=== PATIENT | male | born 1965 | race Caucasian/White ===

== ENCOUNTER 2020-07-06 00:13 | Emergency (ER) | payer OTHER, SELFPAY ==
--- NOTE | ~2020-07-06 | XR_ITS ---
EXAMINATION: XR shoulder RT min 2V DATE: 07/06/2020 00:36 INDICATION: Superior right shoulder pain radiating down the arm. TECHNIQUE: AP internally and externally rotated, AP oblique externally rotated and transscapular Y vi ews of the right shoulder were obtained. COMPARISON: None FINDINGS: Normal alignment. No fracture.Mild chondrocalcinosis at the inferior glenoid labrum. Minimal nonunif orm joint space narrowing at the right glenohumeral joint consistent with very mild osteoarthritis. A cromioclavicular joint space is normal. Tiny calcified nodule at the right lower lung zone consistent with old granulomatous disease. IMPRESSION: Very mild right glenohumeral osteoarthritis. No acute osseous abnormality. Reviewed, dictated and finalized at location A.
[2020-07-06 00:15] VITALS: BP 165/80; PULSE 77; RESP 16; TEMP 36.3; O2SAT 98
--- NOTE | 2020-07-06 00:52 | ED.UPPEXIN ---
HPI - Extremity Injury (Upper) General Chief Complaint: Extremity Injury, Upper Stated Complaint: right shoulder pain Time Seen by Provider: 07/06/20 00:40 Source: patient Mode of arrival: ambulatory Limitations: no limitations History of Present Illness HPI narrative: This is a 55-year-old male that presents the emergency department for right shoulder pain today. Reports he was lifting a squeegee overhead and felt a sharp pain in the right shoulder. Reports since he has had pain over the lateral shoulder that radiates into arm. Worse with movement and relieved with rest. Reports decreased active range of motion due to pain. Denies numbness. Review of Systems Review of Systems: Narrative: CONSTITUTIONAL: Denies fever MUSCULOSKELETAL: Reports joint pain, and myalgia. NEUROLOGIC: Denies numbness All systems reviewed & are unremarkable except as noted in HPI and below PMFSH Social History Social History Smoking status: Never smoker Alcohol intake: current Exam Narrative: Exam Narrative: GENERAL: Well-appearing, well-nourished, and in no acute distress. HEAD: Normocephalic, atraumatic. EYES: PERRLA and EOMI. ENT: Nares clear, no rhinorrhea or epistaxis. Mucous membranes moist. Oropharynx without tonsillar hypertrophy exudate or other lesions. Bilateral TMs pearly jack non-bulging NECK: Supple. No adenopathy or masses. No carotid bruits or JVD CHEST: Clear to auscultation. No respiratory distress. No wheezes rales or rhonchi HEART: Regular rate and rhythm. No murmur heard. Normal peripheral pulses. ABDOMEN: Soft, nontender, nondistended, normal active bowel sounds. EXTREMITIES: Decreased active range of motion in the right shoulder due to pain. Pain with range of motion above 90 degrees. No edema, erythema or obvious deformity. Normal sensation. Normal radial pulses. Strength equal in bilateral upper extremities (5/5) SKIN: Warm, dry, no rash. NEURO: No focal deficits. Alert and oriented x3. PSYCH: Normal mood and affect Course Vital Signs Vital signs: Vital Signs Temperature 97.4 F L 07/06/20 00:15 Pulse Rate 77 07/06/20 00:15 Respiratory Rate 16 07/06/20 00:15 Blood Pressure 165/80 H 07/06/20 00:15 Pulse Oximetry 98 07/06/20 00:15 Temperature 97.4 F L 07/06/20 00:15 Pulse Rate 77 07/06/20 00:15 Respiratory Rate 16 07/06/20 00:15 Blood Pressure 165/80 H 07/06/20 00:15 Pulse Oximetry 98 07/06/20 00:15 MDM - Extremity Injury (Upper) MDM Narrative Medical decision making narrative: Patient presents the emergency department for right shoulder pain. No certain trauma. Reports he was lifting his arm up over his head when he felt a sharp pain in the shoulder. Pain is over the deltoid and radiates into the arm. Pain is worse with range of motion above 90 degrees. Right shoulder x-rays without acute osseous abnormalities. Patient instructed on care of possible rotator cuff injury. He was given a sling for comfort. He was instructed to come out of the sling often and do range of motion exercises. Instructed to take [id number] pain medications as needed. He will be given orthopedics for follow-up. He was given warnings to return to the ER Imaging Data My impression: Right shoulder x-ray: Negative for acute bone or joint abnormality Critical Care Time Critical Care Time Critical Care Time: No Discharge Plan Discharge Clinical Impression: Acute pain of right shoulder Patient Disposition: Home, Self-Care Condition: Stable Instructions: Shoulder Pain (ED) Additional Instructions: Return to the emergency department if you experience fever, redness and swelling of your arm, numbness, or any other symptoms that are concerning to you You may wear sling for comfort. Do make sure to come out of the sling and do range of motion exercises. [id number] pain medication as needed. Ice to the area Follow-up with orthopedics. Call to make an appointment Follow-up/Ref
[2020-07-06 01:02] VITALS: BP 158/74; PULSE 72; RESP 18
== END 2020-07-06 01:02 | disposition home or self-care (01) ==
LOC: ANHED 01:06
PROVIDERS: Emergency Provider Emergency Medicine
DX: M25.511 Pain in right shoulder (principal); M19.011 Primary osteoarthritis, right shoulder
CPT/HCPCS: 73030; 99283; A4565

== ENCOUNTER → 2020-08-09 10:21 | Outpatient (CLI) | payer OTHER, SELFPAY ==
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
--- NOTE | ~2020-08-09 | CT_ITS ---
EXAMINATION: CT shoulder RT w con DATE: 08/09/2020 11:39 INDICATION: Posttraumatic right shoulder weakness and pain TECHNIQUE: High resolution computed tomography (CT) arthrogram of the right shoulder was performed fo llowing intra-articular administration of a 1:3 mixture of Omnipaque 240 but without intravenous cont rast. Details of the joint injection have been dictated separately. Additional sagittal and coronal r econstructions were performed. Automated exposure control and iterative reconstruction technique were employed. The dose-length product was 479.46 mGy-cm. COMPARISON: 07/09/2020 FINDINGS: Bone alignment is normal. No fracture. Mild acromioclavicular osteoarthritis. Mild right glenohumeral osteoarthritis with partial thickness cartilage loss with smooth chondral surface along the cephalad third of the glenoid. There is a partial-thickness tear at the base of the posterior superior labrum extending from the 10:00-12:00 position. There is an additional contrast filled tear at the 6:00-7:0 0 position of the inferior glenoid. There is a large tear involving the majority of the lesser tubero sity footplate of the subscapularis tendon. The majority the bursal side of the tendon remains intact and contiguous with the transverse humeral ligament. There is however a small full-thickness perfora tion at the cephalad aspect of the tendon resulting in extension of injected contrast into the subacr omial/subdeltoid bursa. No articular sided tear of the supraspinatus, infraspinatus or teres minor te ndons or bursal sided tear of the supraspinatus tendon which is delineated by the contrast in the sub deltoid portion of the bursa. No asymmetric muscular atrophy of the rotator cuff 1 remainder of the s houlder girdle. No pathologically enlarged lymphadenopathy at the right axilla or in the visualized r ight hilum and superior right mediastinum. Visualized portion of the right lung are clear. IMPRESSION: 1. Mild glenohumeral osteoarthritis with tears at the superior to posterior superior labrum and at th e inferior glenoid labrum. 2. Partial tear of the distal subscapularis tendon involving the majority of the lesser tuberosity fo otplate and with small full-thickness perforation at the cephalad aspect of bursal side of the tendon which remains otherwise intact and contiguous with the transverse humeral ligament. 3. Mild acromioclavicular osteoarthritis. Reviewed, dictated and finalized at location A. IMPRESSION: 1. Mild glenohumeral osteoarthritis with tears at the superior to posterior sup erior labrum and at the inferior glenoid labrum. 2. Partial tear of the distal subscapularis tendon involving the majority of th e lesser tuberosity footplate and with small full-thickness perforation at the cephalad aspect of bursal side of the tendon which remains otherwise intact and contiguous with the transverse humeral ligament. 3. Mild acromioclavicular osteoarthritis.
== END ==
PROVIDERS: Visit Provider Orthopaedic Surgery
DX: S46.811A Strain of other muscles, fascia and tendons at shoulder and upper arm level, right arm, initial encounter (principal); M19.011 Primary osteoarthritis, right shoulder
CPT/HCPCS: 23350; 73201; 77002; Q9966

== ENCOUNTER 2021-11-20 15:05 | Emergency (ER) | payer OTHER, SELFPAY ==
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
[2021-11-20 15:15] VITALS: BP 154/88; PULSE 79; RESP 18; TEMP 36.3; O2SAT 100
== END 2021-11-20 15:52 | disposition home or self-care (01) ==
PROVIDERS: Emergency Provider Nurse Practitioner Family
DX: S81.811D Laceration without foreign body, right lower leg, subsequent encounter (principal); V29.9XXD Motorcycle rider (driver) (passenger) injured in unspecified traffic accident, subsequent encounter; I10 Essential (primary) hypertension; M19.90 Unspecified osteoarthritis, unspecified site
CPT/HCPCS: 99211; G0463

== ENCOUNTER 2023-10-01 08:28 | Outpatient (CLI) | payer OTHER, SELFPAY ==
--- NOTE | ~2023-10-01 | CT_ITS ---
EXAMINATION: CT sinus wo con DATE: 10/01/2023 09:00 INDICATION: Chronic sinusitis. TECHNIQUE: Computed tomography (CT) of the paranasal sinuses was performed without intravenous contra st. Iterative reconstruction technique was employed. The dose-length product was 283.55 mGy-cm. COMPARISON: CT sinuses 04/25/2006 FINDINGS: There is extensive mucosal thickening in the frontal and bilateral ethmoid sinuses. There i s moderate mucosal thickening in the sphenoid sinus and mild mucosal thickening in the maxillary sinu ses. There is nodular mucosal thickening in the nasal cavity. There are changes of uncinectomies and ethmoidectomies. There is rightward deviation of the inferior nasal septum and leftward deviation of superior nasal septum. The ostiomeatal units are patent. There is gas in right ocular globe. IMPRESSION: 1. 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 2. Rightward deviation of inferior nasal septum and leftward deviation of superior nasal septum. 3. Gas in right ocular globe. Reviewed, dictated and finalized at location A. IMPRESSION: 1. 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 2. Rightward deviation of inferior nasal septum and leftward deviation of super ior nasal septum. 3. Gas in right ocular globe.
== END 2023-10-01 08:29 ==
LOC: MICIMG 08:28
PROVIDERS: PCP Otolaryngology; Visit Provider Otolaryngology
DX: J32.9 Chronic sinusitis, unspecified (principal); J34.2 Deviated nasal septum
CPT/HCPCS: 70486

== ENCOUNTER 2025-02-20 21:00 | Observation (INO) | payer OTHER, SELFPAY ==
[2025-02-20] VITALS (7 sets, daily range): BP systolic 144–162; BP diastolic 65–81; PULSE 65–74; RESP 14–22; TEMP 36.3–36.9; O2SAT 95–99; BMI 36.3
--- NOTE | ~2025-02-20 | XR_ITS ---
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 Lungs clear. No acute bony abnormality. Small hiatal hernia. IMPRESSION: 1. No acute cardiopulmonary findings given portable technique. Reviewed, dictated and finalized at location R. ESTATE PROFESSOR
--- NOTE | ~2025-02-20 | CT_ITS ---
CT HEAD NON-CONTRAST Clinical History: left sided defecit Comparison: None Technique: Unenhanced axial images skull base to vertex Coronal, sagittal reformats CT images acquired with automatic exposure control for dose reduction DLP: 605 mGy-cm Findings: Sulci, ventricles: Unremarkable. No intracerebral hemorrhage. No evidence acute territorial infarct. No mass effect, midline shift. Bony calvarium intact. Visualized paranasal sinuses: Maxillary antrectomies. A few scattered retention cysts. Mastoid air cells: Clear. IMPRESSION: 1. No acute intracranial findings. Reviewed, dictated and finalized at location R. [place] INTERIOR DESIGNER
--- NOTE | ~2025-02-20 | CT_ITS ---
EXAMINATION: CTA BRAIN/CAROTID DATE: 02/20/2025 21:41 INDICATION: Suspected stroke with left-sided neurologic deficits TECHNIQUE: Computed tomographic angiography (CTA) of the head and neck was performed with 100 mL Omnipaque-350 intravenous contrast. Multiplanar reconstructions and maximum intensity projection 3D-reconstructions of the carotid arteries and of the intracranial arteries were created by the technologist on a separate workstation. Automated exposure control and iterative reconstruction technique were employed.The dose-length product was 1157.13 mGy-cm. COMPARISON: Head CT dated 02/20/2025 FINDINGS: Intracranial arteries Vertebral arteries are codominant. There is a linear filling defect extending across the caudal-most basilar artery which could represent a small dissection flap or small amount of nonocclusive thrombus. There is a minimal amount of nonhemodynamically significant atherosclerotic plaque at the bilateral carotid siphons. There is no hemodynamically significant stenosis in the vertebral, basilar and internal carotid arteries. The right P1 and bilateral A1 segments are patent. The left posterior cerebral artery supplied via a left internal carotid artery and a patent left posterior commuting artery. There is also a patent smaller caliber right posterior communicating artery providing collateral flow to the right posterior cerebral artery. There is a patent anterior communicating artery. There are no aneurysms identified. Cerebral arterial arborization appears symmetric. No abnormally enhancing brain lesions. Carotid arteries: The aortic arch and the great vessels arising from the arch are normal in caliber with no dissection or hemodynamically significant stenosis. There is 25% stenosis of the right carotid bulb relative to normal distal artery lumen diameter (NASCET criteria). There is no evident atherosclerotic plaque with 0% stenosis of the left carotid bulb relative to normal distal artery lumen diameter. Mild atelectasis in the visualized upper lungs likely related to expiratory phase of imaging with concave contour of the posterior wall of the trachea. The bones as well as the cervical soft tissues are unremarkable. IMPRESSION: 1. 25% stenosis of the right carotid bulb relative to normal distal artery lumen diameter (NASCET criteria). 2. 0% stenosis of the left carotid bulb relative to normal distal artery lumen diameter. 3. Small linear filling defect at the proximal basilar artery which could represent a short dissection flap or small amount of nonocclusive thrombus. Otherwise unremarkable cerebral CT angiogram. Reviewed, dictated and finalized at location A. T PLANNER IMPRESSION: 1. 25% stenosis of the right carotid bulb relative to normal distal artery lume n diameter (NASCET criteria). 2. 0% stenosis of the left carotid bulb relative to normal distal artery lumen diameter. 3. Small linear filling defect at the proximal basilar artery which could repre sent a short dissection flap or small amount of nonocclusive thrombus. Otherwis e unremarkable cerebral CT angiogram.
--- NOTE | ~2025-02-20 | CT_ITS ---
EXAMINATION: CTA chest abdomen pelvis DATE: 02/21/2025 9:59 SHIFT MGR INDICATION: Left-sided pain. Neurologic deficit. TECHNIQUE: Computed tomographic angiography (CTA) of the chest, abdomen, and pelvis was performed without and with 100 mL Omnipaque-350 intravenous contrast. The dose-length product was 1721.20 mGy-cm. Maximum intensity projection 3D- reconstructions of the aorta and other arteries were constructed by the technologist on a separate workstation. Automated exposure control and iterative reconstruction technique were employed. COMPARISON: None. FINDINGS: CHEST CTA: There is a Bochdalek hernia containing small hiatal hernia. No significant pleural or pericardial effusion. No central pulmonary embolism. No evidence for aortic aneurysm or dissection. Shallow inspiration with crowding of the pulmonary vessels. Dependent atelectasis. No significant pleural or pericardial effusion. No thoracic lymphadenopathy. ABDOMEN AND PELVIS CTA: No evidence for aortic aneurysm or dissection. No lymphadenopathy. Fatty infiltration of the liver. Gallbladder is present. The spleen, pancreas, adrenal glands and kidneys are unremarkable. Normal appendix. No free air or free fluid. The celiac axis, SMA, renal arteries and [place] are patent. Colonic diverticulosis without evidence for diverticulitis. Nonobstructive bowel pattern. Mild lower thoracic and lumbar spondylosis. IMPRESSION: 1. No acute abnormality of the chest, abdomen or pelvis. No significant vascular abnormality. 2: Fat-containing Bochdalek hernia. 3: Fatty infiltration of the liver. Reviewed, dictated and finalized at location O. T MGR IMPRESSION: 1. No acute abnormality of the chest, abdomen or pelvis. No significant vascula r abnormality. 2: Fat-containing Bochdalek hernia. 3: Fatty infiltration of the liver.
--- OUTSIDE RECORDS SUMMARY | 2025-02-20 21:02 | XMS_ITS | Clinical Summary ---
Author Organization [facility] Address [address] [place] [address] Care Team Providers Care Mortician Investigator Name Role Phone No, Physician Primary Care Provider [phone] Allergies No known active allergies Medications No known medications Active Problems Problem Noted Date Diagnosed Date Right retinal detachment 09/13/2023 Assessment & Plan (12/24/2023 12:39 PM CDT): POM3 status post PPV/EL/AFx/SF6 to the right eye for mac-off RRD (09/16/23) Retina attached on exam. No ME on OCT. 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 Vision improves with pinhole. We discussed that cataract surgery may help his VA but vision will not return to what it was prior to the retinal detachment. Patient would like to be seen in pre-op clinic to discuss options. Of note, patient had a small lens coloboma noted during surgery - this is likely accompanied by absence of zonular support in that area, will likely be a complex cataract. Can return to retina prn. Assessment & Plan (10/24/2023 8:31 AM CDT): Five weeks status post PPV/EL/AFx/SF6 to the right eye for mac-off RRD. Retina attached on exam. No ME on OCT. We discussed that decreased vision may be due to damage to the retina from the detachment; cataract surgery may help but may not return vision to normal. Return to clinic in 2 months Signs and symptoms of retinal detachment, tears and endophthalmitis, elevated pressure reviewed with patient. If exam stable, refer to pre-op. Patient's cataract surgery may be complex due to small lens coloboma (visible during surgery). Post Op Position: none Restrictions lifted, no altitude precautions Assessment & Plan (10/08/2023 3:15 PM CDT): Three weeks status post PPV/EL/AFx/SF6 to the right eye. Bubble has resolved. Addon today for decreased vision after basketball to head. Retina attached on exam. No ME on OCT. Subjective decreased VA compared to OS may be due to cataract. Continue Tobramycin 2x/day, and Predforte 2x/day until bottles run out Return to clinic in October as scheduled. Signs and symptoms of retinal detachment, tears and endophthalmitis, elevated pressure reviewed with patient. Post Op Position: none Restrictions lifted, no altitude precautions Assessment & Plan (09/24/2023 5:29 PM CDT): One week status post PPV/EL/AFx/SF6 to the right eye. Exam w/ bubble in AC, deep chamber. Can stop shield, Tobramycin 2x/day, and Predforte 2x/day until bottles run out Return to clinic in one month. Signs and symptoms of retinal detachment, tears and endophthalmitis, elevated pressure reviewed with patient. Post Op Position: none Altitude precautions were reviewed with patient. Restrictions lifted Assessment & Plan (09/17/2023 7:02 PM CDT): One day status post PPV/EL/AFx/SF6 to the right eye. Exam with bubble between phakic lens and iris superiorly - possible due to lens coloboma noted during surgery (likely missing zonules). AC deep inferiorly. Shield operated eye, Tobramycin 4x/day, and Predforte 4x/day Return to clinic in one week. Signs and symptoms of retinal detachment, tears and endophthalmitis, elevated pressure reviewed with patient. Post Op Position:Avoid flat on back position. Altitude precautions were reviewed with patient. No strenuous activity. 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 Symptoms for several weeks with worsening of vision on 09/11. Risks, benefits and alternatives for surgery include by not limited to infection, bleeding, damage to the eye, loss of vision, loss of the eye,deformity, diplopia, increased IOP, cataract, need for new refraction, RD, RT, gas injection, post op positioning, altitude precautions, silicone oil placement, need for additional surgery, inflammation to one or both eyes, no guarantees were made, and the guarded prognosis was discussed with the patient. 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 They understand and wish to proceed. Plan: PPV/EL/AFx/[id number] OD [place]/Eufemia 90 minutes MAC Social History Tobacco Use Types Packs/Day Years Used Date Smoking Tobacco: Never Tobacco Cessation:Counseling Given: Not Answered AUDIT-C Answer Date Recorded Q1: How often do you have a drink containing alc ohol? Monthly or less 09/16/2023 Q2: How many drinks containi ng alcohol do you have on a typical day when you are drinking? 1 or 2 09/16/2023 Q3: How often do you have si x or more drinks on one occasion? Never 09/16/2023 Personal Safety Answer Date Recorded Have you ever been in or are you currently in a harmful physical or emotional relationship or is someone making you feel afraid or unsafe? 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 Gender Identity Not on file Sexual Orientation Not on file Last Filed Vital Signs Vital Sign Reading Time Taken Comments Blood Pressure 123/77 09/16/2023 3:10 PM CDT Pulse 62 09/16/2023 3:10 PM CDT Temperature 36 C (96.8 F) 09/16/2023 3:04 PM CDT Respiratory Rate 16 09/16/2023 3:10 PM CDT Oxygen Saturation 94% 09/16/2023 3:10 PM CDT Inhaled Oxygen Concentration - - Weight 124.7 kg (275 lb) 09/16/2023 12:41 PM CDT Height 188 cm (6' 2) 09/16/2023 12:41 PM CDT Body Mass Index 35.31 09/16/2023 12:41 PM CDT Plan of Treatment Health Maintenance Due Date Last Done Comments Colon Cancer Screening-Colonoscopy 1964 Depression Screening 1964 Hepatitis C Screening 1964 Prostate Cancer Screening-PSA 1964 Hepatitis B Screening 1982 Regular Well Visit/Exam 18-64 1982 Zoster Vaccine (1 of 2) 2014 DTaP/Tdap/Td Vaccine (2 - Td or Tdap) 01/07/2024 01/06/2014 Influenza Vaccine (#1) 2024 4, 01/27/2013 Pneumococcal vaccine <65 Aged Out No longer eligible based on patient's age to complete this topic Insurance [facility] Care Teams Mortician Investigator Relationship Specialty Start Date End Date No, Physician PCP - General 09/13/23
--- OUTSIDE RECORDS SUMMARY | 2025-02-20 21:02 | XMS_ITS | Data Portability ---
Author Organization [facility], Main Office Address [address] [place] [address] Assessment No assessment recorded. Plan of Treatment Reminders Order Date Submit Date Provider Last Modified By Organization Details Last Modified Time Details Appointments None recorded. Lab None recorded. Referral None recorded. Procedures None recorded. Surgeries endoscopy, nasal/sinus , w/ maxillary antrostomy & tissue removal (SURG) 2023 024 [email or web address] Not available 5 12:33:11 endoscopy, nasal/sinus , with frontal sinus exploration (SURG) 2023 024 [email or web address] Not available 5 12:33:11 endoscopy, nasal/sinus , w/ total ethmoidecto my (SURG) 2023 024 [email or web address] Not available 5 12:33:11 endoscopy with removal of sphenoid sinus tissue (SURG) 2023 024 [email or web address] Not available 5 12:33:11 Imaging None recorded. Medication Orders cefdinir 300 mg capsule 2023 024 [id number], [address], [id number], 4 13:57:07 Medrol (Cipriano) 4 mg tablets in a dose pack 2023 [facility] #[id number], [address], [id number], 4 13:57:10 Patient TargetsNo targets recorded. Patient InstructionsNo instructions recorded. Reason for Referral None Reported. Results Created Date Observation Date Name Description Value Unit Range Abnormal Flag Note LastModifiedBy Organization Detail LastModifiedTime 10/02/19 24 10/01/2023 CT, sinus es, w/o contr ast No observ ation record ed. [email or web address] [facility] [address], [place], [address], 10/02/2023 08:25:12 10/02/19 24 10/01/2023 CT, sinus es, w/o contr ast No observ ation record ed. [email or web address] [facility] [address], [place], [address], 10/02/2023 16:52:16 Result Notes None recorded. Problems Name Problem SNOMED Code Status Onset Date Resolution Date Notes Provider Name and Address Organization Details Recorded Time Partial thickness rotator cuff tear 360071291 Active 2021 [facility] Available [facility] 23:11:00 Chronic sinusitis 82025122 Active 2023 Gema Martinez RN null, [employer] 4 15:14:28 Chronic maxillary sinusitis 55562746 Active 2023 Miki Sánchez MD [address], [place] [address], [place], [address] , [employer] [facility] [employer] 4 12:13:41 Chronic ethmoidal sinusitis 52661443 Active 2023 Miki Sánchez MD [address], [place], [address] , [employer] 4 12:13:49 Chronic frontal sinusitis 01771044 Active 2023 Miki Sánchez MD [address], [address], [place], [address] , [employer] [facility] [employer] [facility] 4 12:14:01 Chronic sphenoidal sinusitis 23792946 Active 2023 Miki Sánchez MD [address] [facility], [facility] [address], [place], [address] , [facility] [employer] 12:14:09 Problem Notes None recorded. Procedures Surgical History Date Name Laterality Status Provider Name and Address Organization Details Recorded Time Sinus Surgery completed Gema crow RN [facility] 06/19/2023 15:02:26 procedure on retina completed LUDWIG Tiwari PA [employer] [facility] 11/04/2023 13:57:35 Imaging Results None recorded. Procedure Notes None recorded. Medical Equipment None Reported. Allergies No known drug allergies Medications Name Sig Start Date Stop Date Status Note LastModified by Organization Details LastModified Time prednisolon e acetate 1 % eye drops,suspe nsion 11/05 completed Not Available Not Available Not Available hydrocodone 7.5 mg-acetamin ophen 325 mg tablet 09/13 completed Not Available Not Available Not Available tobramycin 0.3 % eye drops 11/05 completed Not Available Not Available Not Available diclofenac sodium 75 mg tablet,naomi yed release Take 1 tablet twice a day by oral route. active Not Available Not Available No t Available methylpredn isolone 4 mg tablets in a dose pack FOLLOW PACKAGE DIRECTION S 11/03 completed Not Available Not Available Not Available cefdinir 300 mg capsule TAKE 1 CAPSULE BY MOUTH EVERY 12 HOURS 11/03 completed Not Available Not Available Not Available Vitals Date Recorded Body mass index (BMI) Body height Pain severity - 0-10 verbal numeric rating [Score] - Reported Body weight Provider Name and Address Organization Details Last Updated DateTime 04/11/2021 36.6 kg/m2 182.88 cm 0 974185.4 g Not Available [employer] 04/24/2022 23:10:07 Date Recorded Body weight Body mass index (BMI) Body height Body temperature Provider Name and Address Organization Details Last Updated DateTime 06/19/2023 485759.76 g 34.4 kg/m2 187.96 cm 97.6 [degF] Gema Martinez RN [facility] 06/19/2023 15:03:16 Date Recorded Body height Body mass index (BMI) Body weight Body temperature Provider Name and Address Organization Details Last Updated DateTime 11/06/2023 187.96 cm 34.5 kg/m2 894418.35 g 97.6 [degF] Gema Martinez RN [facility] [employer] [facility] 11/06/2023 11:54:00 Date Recorded Body mass index (BMI) Body height Pain severity - 0-10 verbal numeric rating [Score] - Reported Body weight Provider Name and Address Organization Details Last Updated DateTime 12/27/2020 36.6 kg/m2 182.88 cm 1 046161.94 g Not Available [facility] 04/24/2022 23:10:07 Date Recorded Body mass index (BMI) Body height Pain severity - 0-10 verbal numeric rating [Score] - Reported Body weight Provider Name and Address Organization Details Last Updated DateTime 02/07/2021 36.6 kg/m2 182.88 cm 1 447818.94 g Not Available [facility] 04/24/2022 23:10:07 Social History Question Answer Notes LastModified by [employer] Details LastModified Time Tobacco Smoking Status Never Smoker LUDWIG Tiwari, [facility] [employer] 06/04/2023 09:19:10 What Was The Date Of Your Most Recent Tobacco Screening? 07/10/2020 [id number] Information not available 04/24/2022 Sex: Unknown Functional Status Question Answer Note LastModified by [employer] Details LastModified Time What is your level of alcohol consumption? Occasional [id number] Information not available 04/24/2022 Mental Status None recorded. Family History Relationship Description Onset Age of this Age Resolved Age Notes LastModified by Organization Details LastModified Time Father Sinusitis PT REPORT S HIS ENTIRE FAMILY [email or web address] Not available 06/19/2023 15:02:12 Medical History Condition Response MRSA N BACK INJECTIONS N ALLERGIES/HAYFEVER N LUNG DISEASE/DISORDER N HISTORY OF DRUG ABUSE N INSOMNIA N ESRD N RADIATION / CHEMOTHERAPY N COPD N HIGH CHOLESTEROL / HYPERLIPIDEMIA N HYPERTHYROIDISM N PVD N BLOOD DISEASES N EAR OR HEARING PROBLEMS N HYPOTHYROIDISM N SHINGLES N BACK / NECK PROBLEMS N DEPRESSION (INCLUDING POST ) N HAVE YOU BEEN HOSPITALIZED OR SEEN IN PSYCHIATRIC IN THE PAST YEAR ? N FAILED BACK SYNDROME N STROKE/TIA N POLYCYSTIC OVARIES N OBESITY N ANEURYSM N HISTORY WITH COMPLICATIONS WITH ANESTHES IA ? N Do you have Advance directive? N USE OF BLOOD THINNERS N NO SIGNIFICANT PAST MEDICAL HISTORY N DIABETES, TYPE N VON WILLIBRAND'S DISEASE N PARATHYROID DISEASE N ENT Y SEASONAL ALLERGIES N HEARTBURN / REFLUX N POST LAMINECTOMY SYNDROME N HEPATITIS / LIVER DISEASE N SLEEP DISORDER N ARTERIAL INSUFFICIENCY N SEIZURES/EPILEPSY N HEADACHES/MIGRAINES N CHF N PACEMAKER N DIZZINESS N AIDS/HIV N HEART DISEASE/HEART PROBLEMS N NEUROPSYCHOLOGICAL N HYPERTENSION N CANCER: SPECIFY N TOURETTE'S N BLOOD TRANSFUSION N ANEMIA/BLOOD DISORDER N ANESTHESIA COMPLICATIONS N CHRONIC EAR INFECTIONS N ATRIAL FIBRILLATION N AUTOIMMUNE DISEASE N TUBERCULOSIS N Past Encounters Encounter ID Performer Location Encounter Start Date Encounter Closed Date Diagnosis/Indication Diagnosis SNOMED-CT Code Diagnosis ICD10 Code Diagnosis IMO Codes Diagnosis Note [id number] Dhiraj Sharp MD [facility] [address] [place] [address] 07/10/2020 00:00:00 07/10/2020 17:00:38 [id number] Dhiraj Sharp MD [facility] [address] [place] [address] 07/21/2020 00:00:00 07/24/2020 16:57:02 [id number] Dhiraj Sharp MD [facility] [address] [place] [address] 08/14/2020 00:00:00 08/14/2020 18:18:57 [id number] Korey Gallardo MD [facility] [address] [place] [address] 08/22/2020 00:00:00 08/22/2020 16:59:06 [id number] Korey Gallardo MD [facility] [address] [address] 09/06/2020 00:00:00 09/06/2020 14:11:23 [id number] MD KAYLEY [facility] [address] [address] 09/13/2020 00:00:00 09/13/2020 14:20:27 [id number] MD SYD CharlesS[facility] [address] [facility] [place] [address] 10/04/2020 00:00:00 10/04/2020 14:45:11 [id number] MD KAYLEY [facility] [address] [place] [address] 11/15/2020 00:00:00 11/15/2020 16:44:15 [id number] MD CYN [facility] [address] [place] [address] 12/27/2020 00:00:00 12/27/2020 14:31:30 [id number] MD CYN [facility] [address] [facility] [address] [place] [address] 02/07/2021 00:00:00 02/07/2021 14:39:11 [id number] MD CYN [facility] [address] [facility] [address] [place] [address] 04/11/2021 00:00:00 04/11/2021 14:15:42 [id number] MD CYN [facility] [address] [place] [address] 06/19/2023 14:19:32 06/23/2023 15:06:45 Chronic sinusitis 23011908 J32.9 [id number] MD KAYLEY [facility] [address] [place] [address] 11/06/2023 11:42:39 11/06/2023 13:33:34 Chronic sinusitis 96169193 J32.9 Chronic ma xillary sinusitis 12835055 J32.0 Chronic et hmoidal sinusitis 02359491 J32.2 Chronic fr ontal sinusitis 85130563 J32.1 Chronic sp henoidal sinusitis 96847417 J32.3 Health Concerns Section Related Observation LastModified by Organization Detai ls LastModified Time None Recorded Concern Status LastModified by Organization Details LastModified Time None Recorded Advance Directives Directive None Recorded Payers Insurance Date Sequence Insurance Name Policy Number Policy West Covered Member ID West Member ID Guarantor Name 01/17/2024 1 [facility] [id number] Obi Dsouza [id number] Obi Dsouza Notes Date Note Type Note Provider Name and Address Organization Details Recorded Time 06/19/2023 text/html this patient had sinus surgery 20 years ago which was deemed successful but developed a sinus infections past fall which has not resolved. He has been on no medications including [id number]. He feels that most of his symptoms are left-sided Miki Sánchez MD [address], [place], [address], [email or web address] 06/19/2023 15:19:32 11/06/2023 text/html this patient had a CT 5 months ago demonstrating pansinusitis. He did have sinus surgery 20 years ago and reported that it worked well until now. He has been on multiple antibiotics and wants to go ahead and have this fixed. Miki Sánchez MD [address], [place], [address], [email or web address] 11/06/2023 12:14:31
--- OUTSIDE RECORDS SUMMARY | 2025-02-20 21:02 | XMS_ITS | Clinical Summary ---
Author Organization [facility] Address [address] [facility] [facility] [place] [address] Care Team Providers Care Home Theater Installer Name Role Phone Unavailable Primary Care Provider Unavailabl e Source Comments [facility],non-owned Affiliates and Associated Physician Practices is amultiple site organization consisting of ambulatory clinics and hospital sitesin [place], [place], [place] and [place]. This disclosure is being madepursuant to the Care Everywhere program and may not contain all information available regarding this patient. Last updated 17.[facility] [employer] Allergies No known active allergies Active Problems Problem Noted Date Diagnosed Date Visit for wound check 11/17/2021 Social History Tobacco Use Types Packs/Day Years Used Date Smoking Tobacco: Never Smokeless Tobacco: Never Alcohol Use Standard Drinks/Week Comments Yes 0 (1 standard drink = 0.6 oz pur e alcohol) social Sex and Gender Information Value Date Recorded Sex Assigned at Not on file Legal Sex Male 11:33 AM CDT Gender Identity Not on file Sexual Orientation Not on file Last Filed Vital Signs Vital Sign Reading Time Taken Comments Blood Pressure 137/77 11/17/2021 3:45 PM CDT Pulse 66 11/17/2021 3:45 PM CDT Temperature 36.1 C (97 F) 11/17/2021 11:33 AM CDT Respiratory Rate 14 11/17/2021 3:45 PM CDT Oxygen Saturation 100% 11/17/2021 11:33 AM CDT Inhaled Oxygen Concentration - - Weight 122.5 kg (270 lb) 11/17/2021 11:33 AM CDT Height 185.4 cm (6' 1) 11/17/2021 11:33 AM CDT Body Mass Index 35.62 11/17/2021 11:33 AM CDT Plan of Treatment Health Maintenance Due Date Last Done Comments COLOGUARD (AGES 45-75) - COL ON CA SCREENING 1964 COLON MONITORING 1964 COLONOSCOPY - COLON CA SCREENING 1964 CT COLONOGRAPHY - COLON CA SCREENING 1964 Colorectal Cancer Screening 1964 FIT - COLON CA SCREENING 1964 FLEX SIG - COLON CA SCREENING 1964 LIPID TESTING 1964 HIV SCREENING 05/20/1979 HEPATITIS C SCREENING 05/15/1982 DTAP/TDAP/TD VACCINES (1 - Tdap) 05/20/1983 PNEUMOCOCCAL VACCINE 50+ (1 of 1 - PCV) 2014 ZOSTER VACCINE (1 of 2) 2014 DEPRESSION SCREENING 02/25/2024 COVID-19 VACCINE (1 - 2024-2 6 season) 2024 INFLUENZA VACCINE (#1) 2024 Respiratory Syncytial Virus (RSV) Vaccine Pt: or over 60 yrs (1 - 1-dose 75+ series) 05/20/2039 HEPATITIS B VACCINE Aged Out No longe r eligible based on patient's age to complete this topic HIB VACCINE Aged Out No longer eligi ble based on patient's age to complete this topic HPV VACCINE Aged Out No longer eligi ble based on patient's age to complete this topic MENINGOCOCCAL (Group B) VACC INE SHARED DECISION-MAKING Aged Out No longer eligibl e based on patient's age to complete this topic MENINGOCOCCAL GROUPS A/C/Y/W VACCINE Aged Out No longer eligible b ased on patient's age to complete this topic Insurance [facility] [employer]
--- NOTE | 2025-02-20 21:03 | ECG_ITS ---
Test Date: 2025-02-20 21:49:21 Measurements Intervals [place] Rate: 71 P: 25 [place]: 163 QRS: 2 QRSD: 105 T: 28 QT: 385 QTc: 419 Interpretive Statements SINUS RHYTHM MINIMAL Q WAVES- INFERIOR LEADS BASELINE ARTIFACT- I, III, AVR, AVL, V2 BORDERLINE ECG No previous ECG available for comparison Electronically Signed On 02-21-2025 08:33:22 ENVIRONMENTAL RESEARCH PROJECT MANAGER by Alin Moon D.O.
--- NOTE | 2025-02-20 21:10 | ED.NEUROSD ---
HPI - Neuro Symptoms/Deficit General Chief Complaint: Neuro Symptoms/Deficit Stated Complaint: i think i am having a heart attack or stroke Time Seen by Provider: 02/20/25 21:08 History of Present Illness HPI Narrative: 59-year-old male with no chronic medical conditions that he is aware presenting to the emergency department with neurological symptoms. He states that the day after [place] he started having some neurological symptoms in his left upper extremity where his left-sided neck face and arm went completely numb for brief period of time and then resolved. At that time he felt persistently vertiginous for a few moments and then also resolved. He has had this recurred earlier this morning with the same left-sided deficits and vertiginous symptoms favoring his left side when he walked and that resolved spontaneously. About 15 minutes prior to arrival to the emergency department he had severe vertiginous symptoms, left-sided arm numbness, tingling, left neck pain, left back pain and left lower extremity numbness and tingling. He states the leg symptoms have resolved now but his left arm is still having some paresthesias sensations from the elbow down he is having a throbbing pain in his left neck, between his left shoulder blade in back and going to his left upper extremity. Has never happened before and has no history of cardiac disease or CVA history that he is aware of. Does not take any prescription medications. No traumatic injuries. Denies any shortness of breath, chest pain, headache, vision changes, weakness, abdominal pain, fever, chills. Brought back as a stroke activation given symptoms. Related Data Home Medications ?Medication ?Instructions ?Recorded ?Confirmed ?Last Taken ?Type cephalexin 500 mg capsule 500 mg PO DIRECTED 11/20/21 11/20/21 Unknown History sulfamethoxazole 800 1 tablet PO BID 11/20/21 11/20/21 Unknown History mg-trimethoprim 160 mg tablet Allergies Allergy/AdvReac Type Severity Reaction Status Date / Time No Known Allergies Allergy Verified 11/20/21 16:18 [facility] Social History Social History Smoking status: Never smoker Alcohol intake: current Drinks per week: 1 Substance use: never Lack of Transportation: No Lack of Food: Never True Current Housing: I Have Housing Concerned About Future Housing: No Difficulty Paying Gas/Electric Bills: No Difficulty Paying for Meds: No Currently Unemployed: No Education: High School Diploma/GED Difficulty w/ Childcare or Family Care: No Spiritual care concerns: No Course Vital Signs Vital signs: Vital Signs Pulse Rate 67 02/20/25 21:00 Respiratory Rate 22 H 02/20/25 21:00 Blood Pressure 147/73 H 02/20/25 21:00 Pulse Oximetry 99 02/20/25 21:00 Temperature 36.3 C L 02/20/25 23:38 Pulse Rate 65 02/20/25 23:38 Respiratory Rate 20 02/20/25 23:38 Blood Pressure 146/68 H 02/20/25 23:38 Pulse Oximetry 95 02/20/25 23:38 Oxygen Delivery Room Air 02/20/25 21:39 MDM MDM Narrative Medical decision making narrative: 59-year-old male with no chronic medical conditions that he is aware presenting to the emergency department with neurological symptoms. He states that the day after [place] he started having some neurological symptoms in his left upper extremity where his left-sided neck face and arm went completely numb for brief period of time and then resolved. At that time he felt persistently vertiginous for a few moments and then also resolved. He has had this recurred earlier this morning with the same left-sided deficits and vertiginous symptoms favoring his left side when he walked and that resolved spontaneously. About 15 minutes prior to arrival to the emergency department he had severe vertiginous symptoms, left-sided arm numbness, tingling, left neck pain, left back pain and left lower extremity numbness and tingling. He states the leg symptoms have resolved now but his left arm is still having some paresthesias sensations from the elbow down he is having a throbbing pain in his left neck, between his left shoulder blade in back and going to his left upper extremity. Has never happened before and has no history of cardiac disease or CVA history that he is aware of. Does not take any prescription medications. No traumatic injuries. Denies any shortness of breath, chest pain, headache, vision changes, weakness, abdominal pain, fever, chills. Brought back as a stroke activation given symptoms. Patient had intermittent symptoms for the last 3 days all on the same side associated with vertiginous symptoms but today had a sudden onset of pain he describes as a throbbing and pulling as well as persistent symptoms for last 30 minutes with improvement in his left lower extremity but still persistent left upper extremity. Total NIH Stroke Scale of 1 given the sensation changes but otherwise no motor deficits, ataxia, facial asymmetry dysarthria or any other findings. Could be mild CVA/TIA, and is within window for TNK but given low NIH stroke scale with non debilitating features will have to hold off and discuss with Neurology after imaging In addition there there is concern for dissection pathology as well given the location of pain in his left neck and back going down his arm and side associated with subjective paresthesias. Could also be cardiac in origin or purely musculoskeletal. Laboratory studies EKG and CT angiography of his chest abdomen pelvis head neck and a CT noncontrast of the head was ordered. Patient sent his CT scanner from the evaluation station. Glucose normal. CT scans and CT angiography of the head neck were independently reviewed and interpreted by radiology. No LV0, some 20-30% stenosis in various vessels with tortuous vasculature but no acute hemorrhage or large vessel infarct or occlusion. CT angiography of the aorta still pending but I do not appreciate a large dissection or aneurysm. I went and re-evaluated the patient he states all his symptoms have completely resolved. Given the symptoms intermittent in nature with neurological concern possibility of TIA and patient was given aspirin after CTA read. Will be admitted to the hospital for MRI and further risk stratification with neurology evaluation/consult. I did confirm with patient and that he does not know of any medical conditions as he does not seek medical attention or help and he has not seen a doctor in over 10 years. He was agreeable to admission for further workup after our discussion. CT angiography unremarkable. Given aspirin at this time. Remains hemodynamically stable and all symptoms resolved. Discussed with the hospitalist and patient admitted to a telemetry monitored bed for MRI and Neurology evaluation. Orders placed, MRI ordered. Differential Diagnosis Differential Diagnosis: Could be mild CVA/TIA, and is within window for TNK but given low NIH stroke scale with non debilitating features will have to hold off and discuss with Neurology after imaging In addition there there is concern for dissection pathology as well given the location of pain in his left neck and back going down his arm and side associated with subjective paresthesias. Could also be cardiac in origin or purely musculoskeletal. Lab Data MDM Lab Attestation statement: I personally reviewed the patient's lab results. 02/20/25 21:44 02/20/25 21:44 Labs: Lab Results 02/20/25 02/20/25 Range/Units 21:18 21:44 WBC 7.2 (4.5-10.0) K/mm3 RBC 5.58 (4.6-6.20) M/mm3 Hgb 16.7 (14.0-18.0) g/dL Hct 50.1 (42.0-52.0) % MCV 89.8 (80-100) fl MCH 29.9 (26-34) pg MCHC 33.3 (32-36) g/dl RDW 12.4 (11.5-14.5) % Plt Count 176 (150-375) k/mm3 MPV 9.2 (7.4-10.4) fl Immature Gran % (Auto) 0.1 (0-0.5) % Neut % (Auto) 34.7 L (45.5-73.1) % Lymph % (Auto) 55.3 H (18.3-44.2) % [place] % (Auto) 6.9 (2.6-8.5) % Eos % (Auto) 2.2 (0-4.4) % Baso % (Auto) 0.8 (0.2-1.2) % Lymph # (Auto) 3.99 H (0.9-3.2) K/mm3 [place] # (Auto) 0.5 (0.1-0.6) K/mm3 Eos # (Auto) 0.2 (0-0.3) K/mm3 Baso # (Auto) 0.1 (0.0-0.1) K/mm3 Abs Immat Gran (auto) 0.01 (0.00-0.031) K/mm3 Absolute Neuts (auto) 2.5 (1.3-6.7) K/mm3 Absolute Nucleated RBC 0.000 (0.0-0.012) K/mm3 Nucleated RBC % 0.0 (0.0-0.2) % PT 14.6 (11.1-14.7) Seconds INR 1.1 APTT 29.6 (22.3-36.8) Seconds Sodium 141 (137-145) mmol/L Potassium 4.3 (3.4-5.0) mmol/L Chloride 105 (98-107) mmol/L Carbon Dioxide 30 (22-30) mmol/L Anion Gap 6 (4-12) mmol/L BUN 14 (9-20) mg/dL Creatinine 1.10 1.18 (0.8-1.5) mg/dL Estim Creat Clear Calc Not Reportable 79 Estimated GFR > 60 > 60 (59 - ) Glucose 76 (65-110) mg/dL Calcium 9.5 (8.4-10.2) mg/dL Total Bilirubin 1.1 (0.2-1.3) mg/dL AST 37 (17-59) U/L ALT 40 (6-50) U/L Alkaline Phosphatase 68 (38-126) U/L Troponin I < 0.012 (0.000-0.034) ng/mL Total Protein 7.9 (6.3-8.2) g/dL Albumin 4.5 (3.5-5.1) g/dL Imaging Data Attestation: I personally reviewed and interpreted this imaging study as follows: My impression: No acute hemorrhage, no dissection or aneurysm formation. No large vessel occlusion. Discharge Plan Discharge Clinical Impression: TIA (transient ischemic attack) Patient Disposition: Still a Patient Condition: Stable Quality Stroke Date of last known normal: 02/20/25 Time of last known normal: 20:45 Stroke Scale Stroke Scale 1: Stroke scale date:: 02/20/25 Stroke scale time:: 21:12 1a Level of consciousness: alert-0 1b Level of consciousness questions: answers both correctly-0 1c Level of consciousness commands: obeys both correctly-0 2 Best gaze: normal-0 3 Visual: no visual loss-0 4 Facial palsy: normal-0 5a Motor: left arm: no drift-0 5b Motor: right arm: no drift-0 6a Motor: left leg: no drift-0 6b Motor: right leg: no drift-0 7 Limb ataxia: absent-0 8 Sensory: pinprick less sharp-1 9 Best language: no aphasia-0 10 Dysarthria: normal-0 11 Extinction and inattention: no abnormality-0 Level:: 1
[2025-02-20 21:19] LABS: Estimated Glomerular Filt Rate > 60
[2025-02-20 21:52] LABS: Hematocrit 50.1 % (42.0-52.0); Hemoglobin 16.7 g/dL (14.0-18.0); Immature Granulocyte Percent A 0.1 % (0-0.5); Lymphocytes Absolute Auto 3.99 K/mm3 (0.9-3.2); Mean Corpuscular HGB Conc 33.3 g/dl (32-36); Mean Corpuscular Hemoglobin 29.9 pg (26-34); Mean Corpuscular Volume 89.8 fl (80-100); Nucleated Red Blood Cells Absolute Auto 0.000 K/mm3 (0.0-0.012); Nucleated Red Blood Cells Perc 0.0 % (0.0-0.2); Platelet Count Result 176 k/mm3 (150-375); Red Blood Count 5.58 M/mm3 (4.6-6.20); White Blood Count 7.2 K/mm3 (4.5-10.0)
[2025-02-20 22:05] LABS: Alanine Aminotransferase 40 U/L (6-50); Albumin Level 4.5 g/dL (3.5-5.1); Alkaline Phosphatase 68 U/L (38-126); Anion Gap 6 mmol/L (4-12); Aspartate Amino Transferase 37 U/L (17-59); Bilirubin,Total 1.1 mg/dL (0.2-1.3); Blood Urea Nitrogen 14 mg/dL (9-20); Calcium 9.5 mg/dL (8.4-10.2); Carbon Dioxide 30 mmol/L (22-30); Chloride 105 mmol/L (98-107); Estimated CRCL calculation 79 ml/min; Estimated Glomerular Filt Rate > 60; Glucose 76 mg/dL (65-110); INR 1.1; Potassium 4.3 mmol/L (3.4-5.0); Prothrombin Time 14.6 Seconds (11.1-14.7); Sodium 141 mmol/L (137-145); Total Protein 7.9 g/dL (6.3-8.2)
[2025-02-20 22:06] LABS: Partial Thromboplastin Time 29.6 Seconds (22.3-36.8)
--- OUTSIDE RECORDS SUMMARY | 2025-02-20 22:09 | XMS_ITS | Clinical Summary ---
Author Organization [facility] Address [address] [place] [address] Care Team Providers Care School Vocational Educator Name Role Phone No, Physician Primary Care Provider [phone] Allergies No known active allergies Medications No [...] on file Legal Sex Male 11:45 AM [employer] SAL[employer] Gender Identity Not on file Sexual Orientation [...] patient's age to complete this topic Insurance [facility] Care Teams School Vocational Educator Relationship Specialty Start Date End Date No, Physician PCP - General 09/13/23
[2025-02-20 22:16] LABS: Troponin I < 0.012 ng/mL (0.000-0.034)
[2025-02-20] MEDS: ASPIRIN 325 MG TABLET PO (23:03)
--- NOTE | 2025-02-20 23:26 | WPCEDHO ---
ED Hand Off Checklist All vitals saved: yes IV Site documented: yes All med administrations documented: yes Triage Note Triage Note pt to ED via POV with c/o 02/20/25 21:39 tingling on the left side. pt reports he had a similar episode on 02/18. pt reports the left sided tingling today started around 2044. pt reports dizziness and walking more to the left and unable to walk in a straight line. pt reports n/v. code stroke initiated. Allergies No Known Allergies Allergy (Verified 11/20/21 16:18) Administered/Completed Medications Discontinued Medications Aspirin (Aspirin 325 Mg Tablet) 325 mg PO ONCE STA Stop: 02/20/25 22:35 Last Admin: 02/20/25 23:03 Dose: 325 mg Documented By: ARLENE Interventions/Assessments Cardiac Monitoring Start: 02/20/25 21:00 Freq: Status: Active Protocol: Document 02/20/25 21:48 ACO (Rec: 02/20/25 21:48 ACO [id number]) System Consultant Assessment EKG Rythm Sinus Rhythm System Consultant Yes Applied Pulse Rate (60-100) 67 IV / Saline Lock, Insert Start: 02/20/25 21:03 Freq: STAT Status: Complete Protocol: Document 02/20/25 21:03 ACO (Rec: 02/20/25 21:37 ACO [id number]) IV Assessment Peripheral Access Right Antecubital IV Catheter Access Initiated IV Insertion Date 02/20/25 IV Insertion Time 21:37 Catheter Gauge 18 IV Site Assessment WNL IV Care and WNL Maintenance PA: Neurological Assessment Start: 02/20/25 21:00 Freq: Status: Active Protocol: Document 02/20/25 21:49 ACO (Rec: 02/20/25 21:49 ACO [id number]) Neurological Assessment Level of Alert Consciousness Behavior Appropriate,Cooperative Patient Able to Comprehend Comprehension Arousable to Verbal Orientation Oriented to Person,Oriented to Place,Oriented to Time Neurological Dizziness,Nausea/Vomiting,Tingling/Numbness Symptoms Hallucination Type None [place] Coma Scale Eyes Open Verbal Oriented and Alert Motor Follows Commands [place] Coma Total 15 Score Last Vital Signs Temperature 98.3 F 02/20/25 23:17 Pulse Rate 72 02/20/25 23:17 Respiratory Rate 20 02/20/25 23:17 Pulse Oximetry 98 02/20/25 23:17 Blood Pressure 144/65 H 02/20/25 23:17 Blood Pressure Mean 91 02/20/25 23:17 Oxygen Delivery Room Air 02/20/25 21:39 Weight 119.7 kg 02/20/25 21:39 Last Result - Abnormals Only Neut % (Auto) 34.7 % (45.5-73.1) L 02/20/25 21:44 Lymph % (Auto) 55.3 % (18.3-44.2) H 02/20/25 21:44 Lymph # (Auto) 3.99 K/mm3 (0.9-3.2) H 02/20/25 21:44 Most Recent Suicide Severity Rating Suicide Severity Rating NO RISK INDICATED 02/20/25 21:39
--- NOTE | 2025-02-20 23:59 | ADMGEN ---
This patient, Obi Dsouza, was admitted to 2 Medical Room 240-01. Patient/family oriented to hospital policies and general routines including ID bracelet, bed and alarms, visiting hours, pain management, procedures, bathroom and other care routines, personal items, smoking policy, room service/diet, and visiting hours. Information on how to activate the Rapid Response Team has been discussed. Patient/Family are encouraged to report perceived risks to care and to ask questions if they do not understand what they are told or what they should do.
[2025-02-21] VITALS (8 sets, daily range): BP systolic 126–129; BP diastolic 72–74; PULSE 58–71; RESP 16–20; TEMP 36.3–36.7; O2SAT 96–98
--- NOTE | 2025-02-21 | ECHO_ITS ---
Patient Info Name: Obi Dsouza Age: 59 years : 1965 Gender: Male Ht: 72 in Wt: 267 lbs BSA: 2.52 m2 HR: 61 bpm BP: 129 / 72 mmHg Technical Quality: Fair Exam Date: 02/21/2025 12:59 PM Patient Status: O Admit Date: 02/20/2025 Exam Type: CA echo doppler w bubble study Complete two-dimensional, color flow and Doppler transthoracic echocardiogram is performed with agitated saline. Staff Referring Physician: Hernandez Hernandez Corporate Lawyer: Elvin Rothman III Attending Provider: Eulalio Rdz Contrast/Agitated Saline Contrast/Ag. Saline: Agitated Saline Amount: 16.00 ml Administered By: Elvin Rothman III Existing IV Access: Yes IV Access Condition: patent with no signs of infiltration Summary 1. Left ventricular systolic function is normal, estimated at 55-60. 2. The left ventricular diastolic function is indeterminate. 3. Intact interatrial septum visualized by agitated saline imaging. Left Ventricle Left ventricular chamber dimension is normal. Left ventricular systolic function is normal, estimated at 55-60. There is no increased left ventricular wall thickness. Left ventricular septal wall motion is normal. The left ventricular diastolic function is indeterminate. Right Ventricle Right ventricular chamber dimension is normal. Right ventricular systolic function is normal. Left Atria Left atrial chamber dimension is normal. Right Atria Right atrial chamber dimension is normal. Atrial Septum Intact interatrial septum visualized by agitated saline imaging. Aortic Valve The aortic valve is trileaflet. There is no aortic valve sclerosis. There is no aortic valve stenosis. There is no aortic valve regurgitation. Pulmonic Valve The pulmonic valve is normal. There is no pulmonic valve stenosis. There is no pulmonic regurgitation. Mitral Valve The mitral valve has normal leaflets. There is no mitral valve stenosis. There is no mitral valve regurgitation. Tricuspid Valve The tricuspid valve leaflets are normal. There is no significant tricuspid valve stenosis. There is no tricuspid valve regurgitation. Pericardium/Pleural The pericardium appears epicardial fat pad. There is no pericardial effusion. Inferior Vena Cava Normal inferior vena cava with >50% collapse upon inspiration consistent with normal right atrial pressure, 5 mmHg. Aorta The aortic root size at the sinus of Valsalva is normal. The prox ascending aorta size is normal. Left Ventricular Outflow Tract Name Value Normal LVOT 2D LVOT Diameter 2.4 cm LVOT Doppler LVOT Peak Velocity 74 cm/s LVOT Peak Gradient 2 mmHg LVOT Mean Gradient 1 mmHg LVOT VTI 18 cm LVOT VTI/AV VTI Ratio 0.9 LVOT Stroke Volume 83 ml LVOT CO 5.0 l/min LVOT CI 2.0 l/min/m2 Pulmonic Valve Name Value Normal PV Doppler PV Peak Velocity 87 cm/s PV Peak Gradient 3 mmHg PV Mean Gradient 2 mmHg Mitral Valve Name Value Normal MV Doppler MV Peak Gradient 2 mmHg MV Mean Gradient 1 mmHg MV Area (Cont Eq VTI) 2.7 cm2 MV Diastolic Function MV E Peak Velocity 78 cm/s MV A Peak Velocity 75 cm/s MV E/A 1.0 MV Decel Time (PW) 215 ms MV Annular TDI MV E/e' (Septal) 11.9 MV E/e' (Lateral) 8.0 MV E/e' (Average) 10.0 Tricuspid Valve Name Value Normal Estimated PAP/RSVP RA Pressure 5 mmHg <=5 TV Annular TDI TV Lateral Kamilah s' Velocity 10.0 cm/s >=9.5 Aortic Valve Name Value Normal AV Doppler AV Peak Velocity 101 cm/s AV Peak Gradient 4 mmHg AV Mean Gradient 2 mmHg AV VTI 20 cm AV Area (Cont Eq VTI) 4.1 cm2 >=3.0 AV Area (Cont Eq Rafi) 3.4 cm2 AV DI (Rafi) 0.74 AV Regurgitation 2D LVOT Area 4.6 cm2 Ventricles Name Value Normal LV Dimensions 2D/MM IVS Diastolic Thickness (2D) 1.2 cm 0.6-1.0 LVID Diastole (2D) 5.1 cm 4.2-5.8 LVIW Diastolic Thickness (2D) 1.0 cm 0.6-1.0 LVID Systole (2D) 3.6 cm 2.5-4.0 LVOT Diameter 2.4 cm LV Mass (2D Cubed) 217.46 g 88.00-224.00 LV Mass Index (2D Cubed) 86 g/m2 49-115 Relative Wall Thickness (2D) 0.41 <=0.42 LV Fractional Shortening/Ejection Fraction 2D/MM LV Fractional Shortening (2D) 30 % 25-43 LV EF (2D Teichholz) 57 % LV Diastolic Volume (4C MOD) 80 ml LV EF (4C MOD) 62 % LV Diastolic Volume (2C MOD) 95 ml LV EF (2C MOD) 54 % LV Diastolic Volume (BP MOD) 90 ml 62-150 LV Diastolic Volume Index (BP MOD) 36 ml/m2 34-74 LV Systolic Volume (BP MOD) 36 ml 21-61 LV Systolic Volume Index (BP MOD) 14 ml/m2 11-31 LV EF (BP MOD) 59 % 52-72 LV Diastolic Length (4C) 7.8 cm LV Systolic Length (4C) 6.9 cm LV Stroke Volume (4C MOD) 50 ml Atria Name Value Normal LA Dimensions LA Volume (4C A-L) 55 ml LA Volume (BP A-L) 58 ml RA Dimensions RA Systolic Major Fowler Length (4C) 5.3 cm 2.1-2.7 RA Area (4C) 18.6 cm2 <=18.0 Report Signatures
--- NOTE | 2025-02-21 00:36 | P.HP_ITS ---
H&P: HPI History of Present Illness Date/Time: 02/21/25 00:36 Chief Complaint: Neurological symptoms Narrative: This is a 59-year-old male patient who has no prior diagnosis. He does not see a primary care doctor routinely. He does not take any medication for any chronic diseases. He endorses neurological symptoms that started 1 day after [place] on the 18 of February. He s he developed vertigo again with left- sided arm numbness, tingling, left neck pain, left back pain and left lower extremity numbness and tingling. On that day he had left upper extremity and left-sided neck face and arm numbness for brief period time and then resolved. He felt some dizziness at that time that also resolved. 15 minutes prior to arrival to the emergency room on the , he developed the symptoms again pierson matheus this time he also had the symptoms down his left lower extremity as well.. He denies any cardiac or CVA history in the past. (As per ER note, CT scans and CT angiography of the head neck were independently reviewed and interpreted by radiology. No LV0, some 20-30% stenosis in various vessels with tortuous vasculature but no acute hemorrhage or large vessel infarct or occlusion. CT angiography of the aorta still pending but I do not appreciate a large dissection or aneurysm. I went and re-evaluated the patient he states all his symptoms have completely resolved. Given the symptoms inter mittent in nature with neurological concern possibility of TIA and patient was given aspirin after CTA read. Will be admitted to the hospital for MRI and further risk stratification with neurology evaluation/consult. I did confirm with patient and that he does not know of any medical conditions as he does not seek medical attention or help and he has not seen a doctor in over 10 years. He was agreeable to admission for further workup after our discussion). Neurology was consulted from the ED. the patient is being admitted to observation status on the date of service of 02/21/2025. [facility] Past Medical History Medical History (Updated 02/21/25 @ 04:02 by Bianca Sams APRN) Right rotator cuff tear Surgical History Surgical History (Updated 02/21/25 @ 04:02 by Bianca Sams APRN) H/O repair of right rotator cuff Social History Social History Smoking status: Never smoker Alcohol intake: current Drinks per week: 1 Substance use: never Lack of Transportation: No Lack of Food: Never True Current Housing: I Have Housing Concerned About Future Housing: No Difficulty Paying Gas/Electric Bills: No Difficulty Paying for Meds: No Currently Unemployed: No Education: High School Diploma/GED Difficulty w/ Childcare or Family Care: No Spiritual care concerns: No Meds Home Medications and Allergies Home Medications ?Medication ?Instructions ?Recorded ?Confirmed ?Type cephalexin 500 mg capsule 500 mg PO DIRECTED 11/20/21 History sulfamethoxazole 800 1 tablet PO BID 11/20/21 History mg-trimethoprim 160 mg tablet Allergies Allergy/AdvReac Type Severity Reaction Status Date / Time No Known Allergies Allergy Verified 11/20/21 16:18 Vital Signs Vital Signs - 24 hr 02/20/25 21:00 02/20/25 21:03 02/20/25 21:39 Temperature 98.5 F Pulse Rate 67 74 73 Respiratory Rate 22 H 14 20 Blood Pressure 147/73 H 162/81 H 162/81 H Pulse Oximetry 99 96 97 Oxygen Delivery Room Air 02/20/25 21:48 02/20/25 23:17 02/20/25 23:33 Temperature 98.3 F 98.3 F Pulse Rate 67 72 72 Respiratory Rate 20 20 Blood Pressure 144/65 H 144/65 H Pulse Oximetry 98 98 Oxygen Delivery 02/20/25 23:38 Temperature 97.3 F L Pulse Rate 65 Respiratory Rate 20 Blood Pressure 146/68 H Pulse Oximetry 95 Oxygen Delivery Exam Const: General: cooperative, healthy appearing, comfortable, no acute distress, well developed, awake, Physically active, average body habitus and well nourished Nutritional Appearance: average body habitus and well nourished Orientation/consciousness: oriented to person, oriented to place, oriented to time and patient oriented x3 Limitations: no limitations HENMT: Head: normal to inspection, No palpable skull fracture present, normocephalic, atraumatic and abrasion Ears: hearing grossly normal bilaterally Eyes: General: appearance normal, both eyes and all related structures Alignment and Position: alignment normal Periorbital: periorbital findings normal Eyelids: eyelids normal Conjunctivae: conjunctivae normal Sclera: sclerae normal Cornea: corneas normal Pupils: Equal, round and reactive pupils present and Pupil accommodation reflex normal EOM: EOMs intact bilaterally Neck: Neck: normal visual inspection and full ROM Chest: Chest palpation & inspection: normal inspection of the chest Resp: Effort & Inspection: normal respiratory effort Auscultation: clear to auscultation bilaterally Cardio: Palpation: normal PMI Rate: regular rate Rhythm: regular rhythm Heart sounds: S1 normal heart sound present and S2 normal heart sound present Peripheral pulses: Peripheral pulses 2+ throughout GI: Inspection: normal to inspection Percussion: Yes normal to percussion Auscultation: normal bowel sounds Rectal Exam: deferred Skin: General skin exam: normal color Lesions: no lesions Rashes: no rashes Trauma: no lacerations or abrasions Wounds: no wounds Hair: normal Nails: normal Neuro: General: oriented to person, oriented to place, oriented to time and patient oriented x3 Cranial nerves: Yes Equal, round and reactive pupils present and Yes Normal hearing present Cognition (Neuro): normal cognition Speech: normal speech Gait exam (Neuro): Normal gait present Motor exam (neuro): 5/5 motor strength present throughout Sensory Exam: normal sensation Extrem: General: normal to inspection Right upper extremity: normal to inspection and shoulder/upper arm Left upper extremity: normal to inspection and shoulder/upper arm Right lower extremity: normal to inspection Left lower extremity: normal to inspection Psych: Appearance: grossly normal Mental Status: mental status grossly normal Speech and movement: Normal speech and movement present Affect: normal affect Attitude: cooperative Thought process: Normal thought process present Thought content: Yes Normal thought content present Insight: Good insight present (Psych) Judgement: Good judgement present (Psych) Results Labs Labs: Short CBC 02/20/25 Range/Units 21:44 WBC 7.2 (4.5-10.0) K/mm3 Hgb 16.7 (14.0-18.0) g/dL Hct 50.1 (42.0-52.0) % Plt Count 176 (150-375) k/mm3 BMP 02/20/25 02/20/25 21:18 21:44 Sodium 141 Potassium 4.3 Chloride 105 Carbon Dioxide 30 BUN 14 Creatinine 1.10 1.18 Glucose 76 Calcium 9.5 Cardiac Enzymes 02/20/25 Range/Units 21:44 Troponin I < 0.012 (0.000-0.034) ng/mL Liver Function 02/20/25 Range/Units 21:44 Total Bilirubin 1.1 (0.2-1.3) mg/dL AST 37 (17-59) U/L ALT 40 (6-50) U/L Alkaline Phosphatase 68 (38-126) U/L Albumin 4.5 (3.5-5.1) g/dL Attestation: I personally reviewed all lab results ECG Interpretation: Rate 71 NE 163 QRSd 105 QT 385 QTc 419 --Wrens-- P 25 QRS 2 T 28 SINUS RHYTHM INFERIOR MYOCARDIAL INFARCTION , PROBABLY OLD [40+ ms Q WAVE AND/OR ST/T ABNORMALITY IN II/aVF] No previous ECG available for comparison Imaging CT scan - head: Radiologist's impression: See official CT report Quality VTE Prophylaxis VTE prophylaxis: mechanical ordered Stroke Scale Stroke scale date:: 02/21/25 Stroke scale time:: 03:00 1a Level of conciousness: alert-0 1b Level of consciousness: answers both correctly-0 1c Level of consciousness: obeys both correctly-0 2 Best gaze: normal-0 3 Visual: no visual loss-0 4 Facial palsy: normal-0 5a Motor: left arm: no drift-0 5b Motor: right arm: no drift-0 6a Motor: left leg: no drift-0 6b Motor: right leg: no drift-0 7 Limb ataxia: absent-0 8 Sensory: normal-0 9 Best language: no aphasia-0 10 Dysarthria: normal-0 11 Extinction and inattention: no abnormality-0 Level:: 0 Assessment and Plan Assessment and plan (1) TIA (transient ischemic attack): Code(s): G45.9 - Transient cerebral ischemic attack, unspecified Status: Acute Assessment and Plan: -patient's symptoms have occurred on and off for the past 2 days. -CT the brain was reported as negative. -patient has no neurological deficits at this time. He is moving all extremities and speaking without difficulty. He is able to swallow without difficulty. -patient's neurological symptoms have currently resolved. -continue daily aspirin. -continue with neurological checks as per protocol. -continue with telemetry. -patient started out with numbness and tingling to his left arm the 1st day. A Couple days later, the patient had the numbness and tingling left arm and then the left leg as well. He also had a vertigo during this time as well. -neurology has been consulted from ER. -MRI has been ordered for today. -in echos been ordered. -stroke score was noted to be 1 earlier however it is currently 0. -the patient was started on a daily aspirin. Plan The patient had a diagnosis of hypertension many years ago but no longer takes any medication. Otherwise he does not see a primary care physician on a regular basis and is not on any medication.
[2025-02-21 04:58] LABS: Hematocrit 46.2 % (42.0-52.0); Hemoglobin 15.2 g/dL (14.0-18.0); Mean Corpuscular HGB Conc 32.9 g/dl (32-36); Mean Corpuscular Hemoglobin 30.2 pg (26-34); Mean Corpuscular Volume 91.7 fl (80-100); Platelet Count Result 142 k/mm3 (150-375); Red Blood Count 5.04 M/mm3 (4.6-6.20); White Blood Count 5.5 K/mm3 (4.5-10.0)
[2025-02-21 05:18] LABS: Anion Gap 4 mmol/L (4-12); Blood Urea Nitrogen 13 mg/dL (9-20); Calcium 8.5 mg/dL (8.4-10.2); Carbon Dioxide 24 mmol/L (22-30); Chloride 108 mmol/L (98-107); Estimated CRCL calculation 90 ml/min; Estimated Glomerular Filt Rate > 60; Glucose 108 mg/dL (65-110); Potassium 4.2 mmol/L (3.4-5.0); Sodium 136 mmol/L (137-145)
[2025-02-21 05:23] LABS: Troponin I < 0.012 ng/mL (0.000-0.034)
--- NOTE | 2025-02-21 07:40 | PM.IMPN2 ---
Assessment and Plan Assessment and Plan (1) TIA (transient ischemic attack): Code(s): G45.9 - Transient cerebral ischemic attack, unspecified Status: Acute Assessment and Plan: Sx have occurred intermittently for the past 2 days, L sided weakness & tingling, has since resolved. -CT head with NAD -Head/neck CTA: 1. 25% stenosis of the right carotid bulb relative to normal distal artery lumen diameter (NASCET criteria). 2. 0% stenosis of the left carotid bulb relative to normal distal artery lumen diameter. -C/A/P CT: 1. No acute abnormality of the chest, abdomen or pelvis. No significant vascular abnormality. -Continue with tele, neuro checks -Neuro consulted in the ED, ASA 81mg ordered. --per neuro rounds today, following recs: dual antiplatelets and atorvastatin 80 mg a day and follow up with me in 2-3 months time -Echo with bubble pending -Lipid panel yielding HDL 162 & HDL 38, atorvastatin started today Unable to get MRI due to piece of metal being in L lower jaw, this is seen on head/neck CTA. Plans to get this removed 03/03/2025 and interested in obtaining MRI after this. Plan Pending echo w/bubble The patient had a diagnosis of hypertension many years ago but no longer takes any medication. Otherwise he does not see a primary care physician on a regular basis and is not on any medication. Medical Record Review I have reviewed the following patient records and this information was taken into consideration when formulating the assessment and plan.: previous labs and previous ER visits Consultations Consultations: I have discussed the care of this pt with the consulting providers. Time Spent With Patient Time with patient: Greater than 35 minutes Subjective Date/time seen: 02/21/25 0545 Interval history: Pt lying comfortably in bed upon my arrival. Pt continues to deny any complaints and denies any of his neurological sx returning. States that recently he was on vacation in [place] and may have slept wrong on his neck. Denies dizziness, vertigo today as well as CP, SOB, or any other sx. Review of Systems Review of Systems: All systems reviewed & are unremarkable except as noted in HPI and below ENT: Reports Normal hearing present Neurologic: Reports Normal hearing present Exam Const: General: comfortable and no acute distress HENMT: Face/Nose/Sinus: Normal nares present Mouth: Yes moist mucous membranes Eyes: General: appearance normal, both eyes and all related structures Sclera: sclerae normal Pupils: Equal, round and reactive pupils present EOM: EOMs intact bilaterally Neck: Neck: full ROM and supple Carotids: no bruits Chest: Chest palpation & inspection: normal inspection of the chest Resp: Effort & Inspection: normal respiratory effort Auscultation: clear to auscultation bilaterally Cardio: Rate: regular rate Rhythm: regular rhythm GI: Inspection: normal to inspection Auscultation: normal bowel sounds Rectal Exam: deferred Skin: General skin exam: normal color and no rashes or lesions noted Neuro: General: patient oriented x3 Cognition (Neuro): normal cognition Speech: normal speech Motor exam (neuro): 5/5 motor strength present throughout Sensory Exam: normal sensation Extrem: General: normal to inspection Psych: Appearance: grossly normal Affect: normal affect Objective Data Vital Signs Vital Signs: Vital Signs - 24 hr 02/20/25 21:00 02/20/25 21:03 02/20/25 21:39 Temperature 98.5 F Pulse Rate 67 74 73 Respiratory Rate 22 H 14 20 Blood Pressure 147/73 H 162/81 H 162/81 H Pulse Oximetry 99 96 97 Oxygen Delivery Room Air 02/20/25 21:48 02/20/25 23:17 02/20/25 23:33 Temperature 98.3 F 98.3 F Pulse Rate 67 72 72 Respiratory Rate 20 20 Blood Pressure 144/65 H 144/65 H Pulse Oximetry 98 98 Oxygen Delivery 02/20/25 23:38 02/21/25 04:02 02/21/25 05:13 Temperature 97.3 F L 97.6 F Pulse Rate 65 61 61 Respiratory Rate 20 20 Blood Pressure 146/68 H 129/72 Pulse Oximetry 95 96 Oxygen Delivery Intake/Output Intake/Output: Intake & Output 02/18/25 02/19/25 02/20/25 02/21/25 23:59 23:59 23:59 23:59 Intake Total 190 Balance 190 Meds/Results Medications: Active Medications Generic Name Dose Route Start Last Admin Trade Name Freq PRN Reason Stop Dose Admin Acetaminophen 650 mg 02/20/25 22:44 Acetaminophen 325 Mg Tablet PO Q4H PRN Mild Pain (1-3) or Fever Aspirin 81 mg 02/21/25 09:00 Aspirin 81 Mg Enteric Tablet PO [facility] Ondansetron HCl 4 mg 02/20/25 22:44 Ondansetron Inj 4 Mg/2 Ml Vial IV PUSH Q4H PRN Nausea Perflutren Lipid Microsphere 0 ml 02/21/25 04:13 Perflutren Lipid Microspheres 1.5 Ml Vial Diluted To 10 Ml Total Volume IV PUSH 02/24/25 04:13 ONCE PRN adequate visualization Protocol Radiology Results: ITS Impressions Chest X-Ray 02/21/25 06:49 IMPRESSION: 1. No acute cardiopulmonary findings given portable technique. Head CT 02/21/25 06:51 IMPRESSION: 1. No acute intracranial findings. Labs Labs: Laboratory Results - last 24 hr 02/20/25 02/20/25 02/21/25 21:18 21:44 04:30 WBC 7.2 5.5 RBC 5.58 5.04 Hgb 16.7 15.2 Hct 50.1 46.2 MCV 89.8 91.7 MCH 29.9 30.2 MCHC 33.3 32.9 RDW 12.4 12.5 Plt Count 176 142 L MPV 9.2 9.1 Immature Gran % (Auto) 0.1 Neut % (Auto) 34.7 L Lymph % (Auto) 55.3 H [place] % (Auto) 6.9 Eos % (Auto) 2.2 Baso % (Auto) 0.8 Lymph # (Auto) 3.99 H [place] # (Auto) 0.5 Eos # (Auto) 0.2 Baso # (Auto) 0.1 Abs Immat Gran (auto) 0.01 Absolute Neuts (auto) 2.5 Absolute Nucleated RBC 0.000 Nucleated RBC % 0.0 PT 14.6 INR 1.1 APTT 29.6 Sodium 141 136 L Potassium 4.3 4.2 Chloride 105 108 H Carbon Dioxide 30 24 Anion Gap 6 4 BUN 14 13 Creatinine 1.10 1.18 1.04 Estim Creat Clear Calc Not Reportable 79 90 Estimated GFR > 60 > 60 > 60 Glucose 76 108 Calcium 9.5 8.5 Total Bilirubin 1.1 AST 37 ALT 40 Alkaline Phosphatase 68 Troponin I < 0.012 < 0.012 Total Protein 7.9 Albumin 4.5 Quality VTE Prophylaxis VTE prophylaxis: mechanical ordered
[2025-02-21 08:06] LABS: Cholesterol 199 mg/dL (0-200); HDL Direct 38 mg/dL; Triglycerides 123 mg/dL (<150)
[2025-02-21] MEDS: ASPIRIN 81 MG ENTERIC TABLET PO (09:06)
[2025-02-21] MEDS: ATORVASTATIN 40 MG TABLET PO ×2 (09:06→11:05)
--- NOTE | 2025-02-21 10:15 | WPDNEURCNPN ---
Assessment and Plan Assessment and plan (1) TIA (transient ischemic attack): Code(s): G45.9 - Transient cerebral ischemic attack, unspecified Status: Acute Plan Although somewhat atypical the possibility of brainstem transient ischemic attack would be a consideration in view of the vertigo and the numbness on the left side of the body. He has had 2 attacks both of them resolved. LDL is very high at 162. He would be considered to be at high risk of having a vascular pathology although he has not had any previous problems. Does not smoke or drink any alcohol. CT scan of brain and CT angiogram head and neck were reviewed by myself and these did not show any significant abnormality. He cannot have MRI the brain. Echocardiogram will be done. I will suggest dual antiplatelets and atorvastatin 80 mg a day and follow up with me in 2-3 months time. He told me that today he may get to the metal out from the jaw and he would like to get MRI after that. I can certainly arrange that. He is currently not following with any regular family physician and I have advised him to 5 tablets of with someone in our medical group if possible. Consult date: 02/21/25 HPI: Obi Dsouza is a 59 year old maleWho has previously been healthy has had an episode of vertigo numbness in the left arm the day after [employer] which lasted for 10 seconds. They are here another spell yesterday which lasted for 10 minutes or so. He had a sense of imbalance and numbness in the left upper and lower limb. Patient denies any hearing loss or tinnitus. There is no prior history of recurrent vertigo. He has had a head trauma 20 years ago however there is no sequela from that. 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 Patient is right-handed. He has been in good health. He has not had any previous stroke or myocardial infarction. No recent febrile illness. Denies any history of chronic headache. His had a CT scan of brain and CT angiogram head and neck which did not show any abnormality. MRI cannot be done since he has some metal on the left jaw from previous injury. Was 49 and LDL was 162. Patient currently asymptomatic. Able to walk around and had to not have any problems imbalance. His mother had a stroke at age 82 or so. Review of Systems Review of Systems: All systems reviewed & are unremarkable except as noted in HPI and below PMFSH Past Medical History Medical History Right rotator cuff tear Surgical History Surgical History H/O repair of right rotator cuff Social History Social History Smoking status: Never smoker Alcohol intake: current Drinks per week: 1 Substance use: never Lack of Transportation: No Lack of Food: Never True Current Housing: I Have Housing Concerned About Future Housing: No Difficulty Paying Gas/Electric Bills: No Difficulty Paying for Meds: No Currently Unemployed: No Education: High School Diploma/GED Difficulty w/ Childcare or Family Care: No Spiritual care concerns: No Meds Home Medications and Allergies Home Medications ?Medication ?Instructions ?Recorded ?Confirmed ?Type cephalexin 500 mg capsule 500 mg PO DIRECTED 11/20/21 11/20/21 History sulfamethoxazole 800 1 tablet PO BID 11/20/21 11/20/21 History mg-trimethoprim 160 mg tablet Allergies Allergy/AdvReac Type Severity Reaction Status Date / Time No Known Allergies Allergy Verified 11/20/21 16:18 Vital Signs Vital Signs - 24 hr 02/20/25 21:00 02/20/25 21:03 02/20/25 21:39 Temperature 98.5 F Pulse Rate 67 74 73 Respiratory Rate 22 H 14 20 Blood Pressure 147/73 H 162/81 H 162/81 H Pulse Oximetry 99 96 97 Oxygen Delivery Room Air 02/20/25 21:48 02/20/25 23:17 02/20/25 23:33 Temperature 98.3 F 98.3 F Pulse Rate 67 72 72 Respiratory Rate 20 20 Blood Pressure 144/65 H 144/65 H Pulse Oximetry 98 98 Oxygen Delivery 02/20/25 23:38 02/21/25 04:02 02/21/25 05:13 Temperature 97.3 F L 97.6 F Pulse Rate 65 61 61 Respiratory Rate 20 20 Blood Pressure 146/68 H 129/72 Pulse Oximetry 95 96 Oxygen Delivery Exam Const: General: cooperative, healthy appearing and comfortable HENMT: Head: atraumatic Mouth: Yes oropharynx normal Other: Mallampati score was 3 or 4 Eyes: Alignment and Position: alignment normal and position normal EOM: EOMs intact bilaterally Neck: Neck: normal visual inspection and supple Resp: Effort & Inspection: normal respiratory effort Cardio: Heart sounds: S1 normal heart sound present and S2 normal heart sound present Skin: General skin exam: normal color Neuro: Cranial nerves: Yes CN's II-XII intact bilaterally, Yes facial symmetry and Yes Midline tongue present Cognition (Neuro): normal cognition Speech: normal speech Motor exam (neuro): 5/5 motor strength present throughout and Normal motor muscle tone present throughout Sensory Exam: normal sensation Coordination: [id number] test normal and Normal rapid alternating movements of the distal upper extremity present (Neuro) Extrem: General: normal to inspection Psych: Appearance: well kempt Mental Status: mental status grossly normal Speech and movement: Normal speech and movement present Affect: normal affect Thought process: Normal thought process present Thought content: Yes Normal thought content present Insight: Good insight present (Psych) Judgement: Good judgement present (Psych) Results Labs 02/21/25 04:30 02/21/25 04:30 Labs: Short CBC 02/20/25 02/21/25 Range/Units 21:44 04:30 WBC 7.2 5.5 (4.5-10.0) K/mm3 Hgb 16.7 15.2 (14.0-18.0) g/dL Hct 50.1 46.2 (42.0-52.0) % Plt Count 176 142 L (150-375) k/mm3 [facility] 02/20/25 02/20/25 02/21/25 21:18 21:44 04:30 Sodium 141 136 L Potassium 4.3 4.2 Chloride 105 108 H Carbon Dioxide 30 24 BUN 14 13 Creatinine 1.10 1.18 1.04 Glucose 76 108 Calcium 9.5 8.5 Cardiac Enzymes 02/20/25 02/21/25 Range/Units 21:44 04:30 Troponin I < 0.012 < 0.012 (0.000-0.034) ng/mL Liver Function 02/20/25 Range/Units 21:44 Total Bilirubin 1.1 (0.2-1.3) mg/dL AST 37 (17-59) U/L ALT 40 (6-50) U/L Alkaline Phosphatase 68 (38-126) U/L Albumin 4.5 (3.5-5.1) g/dL
[2025-02-22] VITALS: PULSE 60
[2025-02-22 04:00] VITALS: PULSE 61
[2025-02-22 05:37] LABS: Hematocrit 46.3 % (42.0-52.0); Hemoglobin 15.4 g/dL (14.0-18.0); Mean Corpuscular HGB Conc 33.3 g/dl (32-36); Mean Corpuscular Hemoglobin 29.8 pg (26-34); Mean Corpuscular Volume 89.6 fl (80-100); Platelet Count Result 147 k/mm3 (150-375); Red Blood Count 5.17 M/mm3 (4.6-6.20); White Blood Count 5.6 K/mm3 (4.5-10.0)
[2025-02-22 06:10] LABS: Anion Gap 4 mmol/L (4-12); Blood Urea Nitrogen 13 mg/dL (9-20); Calcium 8.6 mg/dL (8.4-10.2); Carbon Dioxide 26 mmol/L (22-30); Chloride 106 mmol/L (98-107); Estimated CRCL calculation 96 ml/min; Estimated Glomerular Filt Rate > 60; Glucose 98 mg/dL (65-110); Potassium 4.2 mmol/L (3.4-5.0); Sodium 136 mmol/L (137-145)
[2025-02-22 06:54] VITALS: BP 127/77; PULSE 61; RESP 14; TEMP 36.4; O2SAT 97
--- NOTE | 2025-02-22 07:59 | P.DS_ITS ---
DS: Admitting Diagnosis Discharge Date 02/22/2025 Admitting Diagnosis L sided weakness DS: Discharge Diagnosis Discharge Diagnosis (1) TIA (transient ischemic attack): Code(s): G45.9 - Transient cerebral ischemic attack, unspecified Status: Acute Assessment and Plan: Sx have occurred intermittently for the past 2 days, L sided weakness & tingling, has since resolved. -CT head with NAD -Head/neck CTA: 1. 25% stenosis of the right carotid bulb relative to normal distal artery lumen diameter (NASCET criteria). 2. 0% stenosis of the left carotid bulb relative to normal distal artery lumen diameter. -C/A/P CT: 1. No acute abnormality of the chest, abdomen or pelvis. No significant vascular abnormality. -Continue with tele, neuro checks -Neuro consulted in the ED, ASA 81mg ordered. --per neuro rounds 01/22, following recs: dual antiplatelets and atorvastatin 80 mg a day and follow up with me in 2-3 months time -Echo with bubble WDL -Lipid panel yielding HDL 162 & HDL 38, atorvastatin started today, will continue at discharge Unable to get MRI due to piece of metal being in L lower jaw, this is seen on head/neck CTA. Plans to get this removed 03/03/2025 and interested in obtaining MRI after this. Plan Pt to be discharged home with plan for neuro f/u. DS: Summary Hospital Course Reason for hospitalization: TIA Hospital Course: The patient is a 59-year-old male with no known chronic medical conditions who presented to the emergency department on 02/20/25 with intermittent episodes of left-sided numbness and tingling involving the arm, face, and at times the leg, associated with vertigo and left-sided neck and upper back pain. Symptoms inayah rojas began on 02/18/25, resolved spontaneously, and recurred on the day of presentation, prompting stroke activation. On arrival, he was hemodynamically stable with a NIH Stroke Scale score of 1 for sensory changes only. Initial laboratory evaluation, including cardiac enzymes, was unremarkable. CT head without contrast showed no acute intracranial abnormality. CT angiography of the head and neck demonstrated no large vessel occlusion, with only mild (approximately 25%) right carotid bulb stenosis and no evidence of dissection or aneurysm. CT of the chest, abdomen, and pelvis was negative for acute pathology. Given the transient nature of symptoms and resolution on evaluation, thrombolysis was not pursued. He was treated with aspirin and admitted for further TIA workup and monitoring. During hospitalization, the patient remained neurologically intact with complete resolution of symptoms and NIH Stroke Scale of 0 on repeat examinations. He was monitored on telemetry without arrhythmia. Neurology was consulted and felt the presentation was most consistent with a transient ischemic attack, possibly involving the posterior circulation, given associated vertigo. MRI brain could not be performed due to retained metal in the left jaw. Transthoracic echocardiogram with bubble study was within normal limits. Lipid panel revealed elevated LDL at 162 mg/dL, and high-intensity statin therapy was initiated. Dual antiplatelet therapy with aspirin and clopidogrel was recommended by Neurology. The patient remained clinically stable, returned to neurologic baseline, and was discharged home on 02/22/25 with aspirin, clopidogrel, and atorvastatin, with plans for outpatient neurology follow-up and continued risk factor management. Status at Discharge Overall status at discharge: patient is back to baseline Time Spent with Patient Time attestation: Total time spent providing and/or coordinating discharge services: Time spent: Greater than 30 minutes Exam Const: General: comfortable and no acute distress Orientation/consciousness: patient oriented x3 HENMT: Head: normal to inspection Mouth: Yes moist mucous membranes Eyes: General: appearance normal, both eyes and all related structures Neck: Neck: normal visual inspection, full ROM and supple Resp: Effort & Inspection: normal respiratory effort Auscultation: clear to auscultation bilaterally Cardio: Rate: regular rate Rhythm: regular rhythm Heart sounds: S1 normal heart sound present and S2 normal heart sound present Peripheral pulses: Peripheral pulses 2+ throughout GI: Inspection: normal to inspection Auscultation: normal bowel sounds Rectal Exam: deferred Skin: General skin exam: normal color and no rashes or lesions noted Neuro: General: patient oriented x3 Cranial nerves: Yes Equal, round and reactive pupils present and Yes Normal hearing present Cognition (Neuro): normal cognition Speech: normal speech Motor exam (neuro): 5/5 motor strength present throughout and Normal motor muscle tone present throughout Sensory Exam: normal sensation Extrem: General: normal to inspection Psych: Appearance: grossly normal Mental Status: mental status grossly normal DS: Data Data Completed and Pending Completed studies during hospitalization: Labs, urine, imaging Labs on day of discharge: Labs from last 24 hours 02/22/25 02/22/25 02/21/25 05:13 05:03 04:30 WBC 5.6 RBC 5.17 Hgb 15.4 Hct 46.3 MCV 89.6 MCH 29.8 MCHC 33.3 RDW 12.3 Plt Count 147 L MPV 9.0 Sodium 136 L Potassium 4.2 Chloride 106 Carbon Dioxide 26 Anion Gap 4 BUN 13 Creatinine 0.97 Estim Creat Clear Calc 96 Estimated GFR > 60 Glucose 98 POC Capillary Glucose Calcium 8.6 Triglycerides 123 Cholesterol 199 LDL Cholesterol Direct 162 HDL Direct 38 02/20/25 21:06 WBC RBC Hgb Hct MCV MCH MCHC RDW Plt Count MPV Sodium Potassium Chloride Carbon Dioxide Anion Gap BUN Creatinine Estim Creat Clear Calc Estimated GFR Glucose POC Capillary Glucose 87 Calcium Triglycerides Cholesterol LDL Cholesterol Direct HDL Direct Discharge Plan Discharge Attending physician on discharge: Chad Shrestha Consulting providers: Tasha Rebolledo; Mackenzie Lucas; Briana Thomas Discharging Clinician: Mackenzie Lucas Anticipated Discharge Date/Time: 02/22/25 12:00 Patient Disposition: Home Activity: as tolerated Diet: heart healthy Discharge Instructions: Diagnosis:?Transient Ischemic Attack (TIA), sometimes called a ?mini-stroke.? Symptoms resolved, but this is a warning sign of future stroke risk. Medications (take exactly as prescribed): * Aspirin 81 mg daily?? helps prevent blood clots. * Clopidogrel (Plavix)?? helps prevent blood clots. Do not stop unless instructed. * Atorvastatin?? lowers cholesterol and reduces stroke risk. Important Medication Notes: * Take medications at the same time each day. * Do not skip doses or stop any medication without medical guidance. * Call promptly for unusual bruising, black stools, blood in urine, or severe muscle pain. Activity: * Resume normal activities as tolerated. * Avoid driving until cleared if you had weakness, vision changes, or confusion. * Gradually increase activity; light walking is encouraged. Stroke Warning Signs ? Call 911 Immediately if ANY occur (F.A.S.T.): * Face:?drooping or numbness * Arm:?weakness or numbness * Speech:?slurred or difficulty speaking * Time:?call 911 right away Also seek emergency care for sudden vision loss, severe headache, dizziness, or trouble walking. Risk Factor Management: * Take medications consistently. * Follow a heart-healthy, low-salt diet. * Stop smoking if applicable. * Limit alcohol. * Monitor blood pressure and blood sugar if instructed. Follow-Up: * Neurology follow-up: schedule this in 2-3 months (do not miss this appointment). * Follow up with primary care for risk factor management and medication monitoring. When to Call the Clinic: * Questions about medications or side effects. * Recurrent brief neurologic symptoms that resolve. * New or worsening headaches. Emergency:?Call?911?for any stroke symptoms, even if they go away. These instructions may be adjusted based on individual risk factors and neurology recommendations. Patient Instructions: Antibiotic Form, Atorvastatin (By mouth), Clopidogrel (By mouth), Transient Ischemic Attack (GEN), Cholesterol and Your Health (GEN) Patient Language: Chilean Stand Alone Forms: General Discharge Information Follow-up/Referrals: Tasha Rebolledo MD [Physician, Family Practice] - 2 Weeks Briana Thomas MD [Physician, Neurology] - 04/25/25 Discharge Medications: New aspirin 81 mg Tablet,Delayed Release (Dr/Ec) 81 mg PO QAM Qty: 90 1RF atorvastatin 40 mg Tablet 80 mg PO DAILY Qty: 90 1RF clopidogrel 75 mg Tablet 75 mg PO QAM Qty: 90 1RF Discontinued sulfamethoxazole-trimethoprim 800-160 mg tablet 1 tablet PO BID cephalexin 500 mg capsule 500 mg PO DIRECTED Date of admission: 02/20/25 22:44 Primary Care Provider: PHYSICIAN,RESIDENT CARE AID Admitting Provider: Eulalio Rdz Attending physician on admission: Eulalio Rdz Condition: Stable Quality VTE Prophylaxis VTE prophylaxis: mechanical ordered Hospitalist MIPS Heart Failure (Exclusion) Patient has history of Heart Transplant or Left Ventricular Assistive Device?: No IF YES, STOP HERE Heart Failure (Qualifier) Patient has current or prior documentation of LVEF less than or equal to 40%, or mod/servere depressed LVSF?: No IF NO, STOP HERE
[2025-02-22 08:00] VITALS: PULSE 60
[2025-02-22] MEDS: ASPIRIN 81 MG ENTERIC TABLET PO (08:23)
[2025-02-22] MEDS: ATORVASTATIN 40 MG TABLET 80 MG PO (08:23)
[2025-02-22] MEDS: CLOPIDOGREL BISULFATE 75 MG TABLET PO (08:24)
== END 2025-02-22 08:55 | disposition home or self-care (01) ==
LOC: ANHED 22:15 → ANH2MED 02-21 00:13
PROVIDERS: Nurse Practitioner; Admitting Provider Internal Medicine; Emergency Provider Student in an Organized Health Care Education/Training Program; Visit Provider Internal Medicine
DX: G45.9 Transient cerebral ischemic attack, unspecified (principal); Z82.3 Family history of stroke
CPT/HCPCS: 36415; 70450; 70496; 70498; 71045; 71275; 74174; 80048; 80053; 80061; 82948; 84484; 85025; 85027; 85610; 85730; 93005; 93306; 96375; 99285; A9270; G0378; Q9967